=== PATIENT | female | born 1940 | race Caucasian/White ===

== ENCOUNTER 2016-10-23 19:19 | Observation (INO) | payer SELFPAY ==
[~2016-10-23] VITALS: Ht 162.6 cm; Wt 54.0 kg
[2016-10-23 19:21] VITALS: BP 241/105; PULSE 72; RESP 18; TEMP 97.8; O2SAT 97
[2016-10-23] MEDS ORDERED: SODIUM CHLORIDE 0.9% FLUSH 5 ML FLUSH IVF PRN (23:00)
[2016-10-23] MEDS ORDERED: methylPREDNISolone SOD SUCC 125 MG/2 ML VIAL IVP ONE (23:00)
--- NOTE | 2016-10-23 23:00 | PD ---
HPI Chief Complaint: Cold / Flu Symptoms Time Seen by Provider: 22:46 Travel History International Travel<30 days: No (came from [facility] over one month ago) Contact w/Intl Traveler<30days: [place] of Country Traveled to: [place] Traveled to known affect area: No History of Present Illness HPI The patient is a 76-year-old female who presents emergency department for cough and shortness of breath. The patient is [place] Islander-speaking, family translates at bedside per her report, according to the family. Patient recently traveled from [facility] one month ago. Approximately 2 weeks ago the patient developed shortness of breath, a dry most and nonproductive cough, and dysuria. The patient does have a history tobacco use, but denies any known history of congestive heart failure, pulmonary most in, DVT, or known COPD. The patient does have intermittent swelling the lower extremities, does take medications for blood pressure including lisinopril and losartan. The patient also takes omeprazole for GERD. The patient's cough is dry and nonproductive, she does have some anterior chest wall pain with coughing that is alleviated at rest. She denies any outright shortness of breath. The patient does not have a primary physician in the local area, is headed back to [facility], or her physician resides, and one month. Family states the patient has had no fever, chills, or sweats. [facility] Past Medical History Cardiovascular Problems: Yes (HTN) Social History Tobacco Use: Yes Allergies-Medications (Allergen,Severity, Reaction): Coded Allergies: No Known Allergies (Unverified , 10/23/16) Review of Systems Except as stated in HPI: all other systems reviewed are Neg General / Constitutional: No: Fever HENT: Positive: Congestion Cardiovascular: No: Chest Pain or Discomfort Respiratory: Positive: Cough, Shortness of Breath, Wheezing Gastrointestinal: No: Nausea, Vomiting, Abdominal Pain Musculoskeletal: Positive: Edema (intermittent) Physical Exam Narrative GENERAL: Awake, alert, pleasant 76-year-old female who appears her stated age and is in no acute respiratory distress. SKIN: Warm and dry. HEAD: Atraumatic. Normocephalic. EYES: Pupils equal and round. No scleral icterus. No injection or drainage. ENT: No injection or drainage.. NECK: Trachea midline. No JVD. CARDIOVASCULAR: Regular rate and rhythm. No murmur appreciated. Heart rate in the 70s. RESPIRATORY: No accessory muscle use. Prolonged expiratory phase with intermittent wheezes and a few scattered rhonchi. GASTROINTESTINAL: Abdomen soft, non-tender, nondistended. Minimal suprapubic discomfort.. MUSCULOSKELETAL: No obvious deformities. No clubbing. No cyanosis. No edema. NEUROLOGICAL: Awake and alert. No obvious cranial nerve deficits. Motor grossly within normal limits. Normal speech. PSYCHIATRIC: Appropriate mood and affect; insight and judgment normal. Data Data Last Documented VS Vital Signs Date Time Temp Pulse Resp B/P Pulse Ox O2 Delivery O2 Flow Rate FiO2 10/23/16 23:02 97 Room Air 10/23/16 22:51 68 20 10/23/16 19:21 97.8 241/105 Orders Complete Blood Count With Diff (10/23/16 22:53) Comprehensive Metabolic Panel (10/23/16 22:53) B-Type Natriuretic Peptide (10/23/16 22:53) D-Dimer (10/23/16 22:53) Act Partial Throm Time (Ptt) (10/23/16 22:53) Prothrombin Time / Inr (Pt) (10/23/16 22:53) Magnesium (Mg) (10/23/16 22:53) Ckmb (Isoenzyme) Profile (10/23/16 22:53) Troponin I (10/23/16 22:53) Influenzae A/B Antigen (10/23/16 22:53) Iv Access Insert/Monitor (10/23/16 22:53) Electrocardiogram (10/23/16 22:53) Ecg Monitoring (10/23/16 22:53) Oximetry (10/23/16 22:53) Oxygen Administration (10/23/16 22:53) Chest, Single Ap (10/23/16 22:53) Sodium Chloride 0.9% Flush (Ns Flush) (10/23/16 23:00) Methylprednisolone So Succ Inj (Solumedr (10/23/16 23:00) Albuterol-Ipratropium Neb (Duoneb Neb) (10/23/16 23:00) Ct Thorax/ Chest Wo Iv Contras (10/24/16 ) Admit Order (Ed Use Only) (10/24/16 01:28) Labs Laboratory Tests Test 10/23/16 23:42 White Blood Count 9.9 TH/MM3 Red Blood Count 4.41 MIL/MM3 Hemoglobin 11.8 GM/DL Hematocrit 35.3 % Mean Corpuscular Volume 80.2 FL Mean Corpuscular Hemoglobin 26.7 PG Mean Corpuscular Hemoglobin 33.3 % Concent Red Cell Distribution Width 16.2 % Platelet Count 222 TH/MM3 Mean Platelet Volume 9.7 FL Neutrophils (%) (Auto) 63.3 % Lymphocytes (%) (Auto) 22.8 % Monocytes (%) (Auto) 5.3 % Eosinophils (%) (Auto) 8.2 % Basophils (%) (Auto) 0.4 % Neutrophils # (Auto) 6.2 TH/MM3 Lymphocytes # (Auto) 2.2 TH/MM3 Monocytes # (Auto) 0.5 TH/MM3 Eosinophils # (Auto) 0.8 TH/MM3 Basophils # (Auto) 0.0 TH/MM3 CBC Comment DIFF FINAL Differential Comment Prothrombin Time 10.5 SEC Prothromb Time International 1.0 RATIO Ratio Activated Partial 28.5 SEC Thromboplast Time D-Dimer Quantitative (PE/DVT) 2.37 MG/L FEU Sodium Level 138 MEQ/L Potassium Level 4.0 MEQ/L Chloride Level 102 MEQ/L Carbon Dioxide Level 25.8 MEQ/L Anion Gap 10 MEQ/L Blood Urea Nitrogen 9 MG/DL Creatinine 1.15 MG/DL Estimat Glomerular Filtration 46 ML/MIN Rate Random Glucose 129 MG/DL Calcium Level 8.8 MG/DL Magnesium Level 2.0 MG/DL Total Bilirubin 0.3 MG/DL Aspartate Amino Transf 14 U/L (AST/SGOT) Alanine Aminotransferase 12 U/L (ALT/SGPT) Alkaline Phosphatase 137 U/L Total Creatine Kinase 66 U/L Troponin I LESS THAN 0.02 NG/ML B-Type Natriuretic Peptide 41 PG/ML Total Protein 8.2 GM/DL Albumin 3.1 GM/DL [facility] Medical Decision Making Medical Screen Exam Complete: Yes Emergency Medical Condition: Yes Medical Record Reviewed: Yes Interpretation(s) EKG reveals normal sinus rhythm with a rate of 63. Nonspecific T wave changes. Last Impressions Chest X-Ray 10/23/16 [id number] Signed Impressions: Service Date/Time: October 23:11 - CONCLUSION: Left upper lobe mass and underlying malignancy should be excluded, chest CT is recommended to further characterize. Kiley Puckett MD Laboratory Tests Test 10/23/16 23:42 White Blood Count 9.9 TH/MM3 Red Blood Count 4.41 MIL/MM3 Hemoglobin 11.8 GM/DL Hematocrit 35.3 % Mean Corpuscular Volume 80.2 FL Mean Corpuscular Hemoglobin 26.7 PG Mean Corpuscular Hemoglobin 33.3 % Concent Red Cell Distribution Width 16.2 % Platelet Count 222 TH/MM3 Mean Platelet Volume 9.7 FL Neutrophils (%) (Auto) 63.3 % Lymphocytes (%) (Auto) 22.8 % Monocytes (%) (Auto) 5.3 % Eosinophils (%) (Auto) 8.2 % Basophils (%) (Auto) 0.4 % Neutrophils # (Auto) 6.2 TH/MM3 Lymphocytes # (Auto) 2.2 TH/MM3 Monocytes # (Auto) 0.5 TH/MM3 Eosinophils # (Auto) 0.8 TH/MM3 Basophils # (Auto) 0.0 TH/MM3 CBC Comment DIFF FINAL Differential Comment Prothrombin Time 10.5 SEC Prothromb Time International 1.0 RATIO Ratio Activated Partial 28.5 SEC Thromboplast Time D-Dimer Quantitative (PE/DVT) 2.37 MG/L FEU Sodium Level 138 MEQ/L Potassium Level 4.0 MEQ/L Chloride Level 102 MEQ/L Carbon Dioxide Level 25.8 MEQ/L Anion Gap 10 MEQ/L Blood Urea Nitrogen 9 MG/DL Creatinine 1.15 MG/DL Estimat Glomerular Filtration 46 ML/MIN Rate Random Glucose 129 MG/DL Calcium Level 8.8 MG/DL Magnesium Level 2.0 MG/DL Total Bilirubin 0.3 MG/DL Aspartate Amino Transf 14 U/L (AST/SGOT) Alanine Aminotransferase 12 U/L (ALT/SGPT) Alkaline Phosphatase 137 U/L Total Creatine Kinase 66 U/L Troponin I LESS THAN 0.02 NG/ML B-Type Natriuretic Peptide 41 PG/ML Total Protein 8.2 GM/DL Albumin 3.1 GM/DL Date/Time Procedure Status Source Growth 10/23/16 23:44 Influenza Types A,B Antigen (DEEP) - Final Complete Nasal Aspirate NEGATIVE FOR FLU A AND B ANTIGEN.... Last Impressions Chest CT 10/24/16 0000 Signed Impressions: Service Date/Time: Monday, October 24, 2016 00:11 - CONCLUSION: Large left upper lobe mass almost certainly malignant. Kiley Puckett MD Chest X-Ray 10/23/16 1976 Signed Impressions: Service Date/Time: October 23:11 - CONCLUSION: Left upper lobe mass and underlying malignancy should be excluded, chest CT is recommended to further characterize. Kiley Puckett MD Differential Diagnosis Differential diagnosis includes bronchitis, pneumonia, congestive heart failure , pleural effusion, pulmonary embolism, acute coronary syndrome. Narrative Course IV was established, labs are drawn and sent, and the patient was placed on cardiac telemetry monitoring and continuous pulse oximetry monitoring. EKG was ordered and interpreted. Chest x-ray was ordered. The patient was administered DuoNeb's an influenza screen was sent to lab. D-dimer was sent to lab as patient recently traveled and has cough and shortness of breath. Chest x -ray reveals a spiculated lung mass, d-dimer is positive, however, most likely patient has lung cancer. CT of the thorax was ordered which reveals a mass in the left upper lobe, most likely malignancy. The patient does have a history of tobacco use. The patient is currently from out of country, [facility], does not have a primary physician. She will not be returning home for over one month. I had a discussion with the family at bedside regarding outpatient follow-up, unlikely to be done in a timely fashion as patient does not have insurance or access to healthcare here, versus admission for biopsy and initial oncology evaluation. The family discussed it for approximately 10 minutes and decided they prefer that the patient be admitted for initial biopsy and oncology evaluation. Therefore, the patient will be admitted to the hospital for new lung mass. Patient has no fever or hemoptysis, less likely to be tuberculosis, and has a appearance of the lung mass. Therefore, the on-call hospitalist was paged for 23 hour observation. Physician Communication Physician Communication The on-call medical service was paged for 23 hour observation. I discussed the patient with Dr. Duarte who agrees with 23 hour observation. Diagnosis Primary Impression: Lung mass Additional Impression: Dyspnea Qualified Code: R06.00 - Dyspnea, unspecified type Admitting Information Admitting Physician Requests: Observation Condition: Stable Tom Mason MD Oct 23, 2016 23:00
[2016-10-23 23:02] VITALS: O2SAT 97
[2016-10-23] MEDS: RESP: ALBUTEROL 2.5 MG/IPRATROPIUM 0.5 MG NEB (SCH) INH (23:09)
[2016-10-23 23:30] VITALS: BP 203/70; PULSE 88; RESP 18
--- NOTE | 2016-10-23 23:47 | RADRPT ---
EXAM DATE/TIME: 10/23/2016 23:11 [facility] COMPARISON: No previous studies available for comparison. INDICATIONS : Shortness of breath. MEDICAL HISTORY : Unobtainable. SURGICAL HISTORY : Unobtainable. ENCOUNTER: Initial ACUITY: 1 day PAIN SCORE: Non-responsive. LOCATION: Bilateral chest FINDINGS: Approximate 3.5 cm left upper lobe mass is present. Heart and mediastinum are unremarkable for techni que. CONCLUSION: Left upper lobe mass and underlying malignancy should be excluded, chest CT is recommended to further characterize. Kiley Puckett MD on October 23, 2016 at 23:45 Board Certified Radiologist. This report was verified electronically.
[2016-10-24] VITALS (13 sets, daily range): BP systolic 141–208; BP diastolic 56–79; PULSE 54–88; RESP 14–24; TEMP 97.5–98.1; O2SAT 94–99
[2016-10-24 00:01] LABS: EOSINOPHIL % 8.2 % (0.0-4.0); HEMATOCRIT 35.3 % (35.0-46.0); HEMO FLAGS DIFF FINAL; LYMPH % 22.8 % (9.0-44.0); MEAN CELL VOLUME 80.2 FL (80.0-100.0); MEAN CORPUSCULAR HEMOGLOBIN 26.7 PG (27.0-34.0); MEAN CORPUSCULAR HGB CONC 33.3 % (32.0-36.0); MONO % 5.3 % (0.0-8.0); NEUT % 63.3 % (16.0-70.0); PLATELET COUNT 222 TH/MM3 (150-450); RED BLOOD COUNT 4.41 MIL/MM3 (4.00-5.30); RED CELL DISTRIBUTION WIDTH 16.2 % (11.6-17.2); WHITE BLOOD COUNT 9.9 TH/MM3 (4.0-11.0)
[2016-10-24 00:02] LABS: AUTOMATED NEUTROPHIL # 6.2 TH/MM3 (1.8-7.7); BASOPHIL % 0.4 % (0.0-2.0); EOSINOPHIL # 0.8 TH/MM3 (0-0.4); LYMPHOCYTE # 2.2 TH/MM3 (1.0-4.8)
[2016-10-24 00:12] LABS: ALT (GPT) 12 U/L (10-53); ANION GAP 10 MEQ/L (5-15); AST (GOT) 14 U/L (15-37); BICARBONATE 25.8 MEQ/L (21.0-32.0); BLOOD UREA NITROGEN 9 MG/DL (7-18); CHLORIDE 102 MEQ/L (98-107); GLOMERULAR FILTRATION RATE 46 ML/MIN (>89); SODIUM (NA) 138 MEQ/L (136-145)
[2016-10-24 00:15] LABS: APTT (PATIENT) 28.5 SEC (24.3-30.1); PROTHROMBIN TIME - PATIENT 10.5 SEC (9.8-11.6)
[2016-10-24 00:16] LABS: ALKALINE PHOSPHATASE 137 U/L (45-117); TOTAL BILIRUBIN ADULT 0.3 MG/DL (0.2-1.0)
[2016-10-24 00:17] LABS: CREATINE KINASE 66 U/L (26-192)
--- NOTE | 2016-10-24 00:34 | RADRPT ---
EXAM DATE/TIME: 10/24/2016 00:11 [facility] COMPARISON: No previous studies available for comparison. INDICATIONS : Cough and congestion for two weeks, abnormal chest x-ray. RADIATION DOSE: 3.33 CTDIvol (mGy) MEDICAL HISTORY : Hypertension. SURGICAL HISTORY : None. ENCOUNTER: Initial ACUITY: 2 weeks PAIN SCALE: 0/10 LOCATION: chest TECHNIQUE: Volumetric scanning of the chest was performed. Using automated exposure control and adjustment of t he mA and/or kV according to patient size, radiation dose was kept as low as reasonably achievable to obtain optimal diagnostic quality images. FINDINGS: There is a large approximately 3.4 cm spiculated mass in the left apex posteriorly almost certai nly malignant. There are scattered tiny lymph nodes within the mediastinum most likely benign. Mancini ry artery calcifications are seen typically seen with CAD and need to be evaluated clinically. There are atherosclerotic calcifications of the aorta due to chronic atherosclerotic disease. CONCLUSION: Large left upper lobe mass almost certainly malignant. Kiley Puckett MD on October 24, 2016 at 0:30 Board Certified Radiologist. This report was verified electronically.
[2016-10-24] MEDS ORDERED: ENALAPRILAT 2.5 MG/2 ML VIAL IV PUSH ONE (01:30)
[2016-10-24] MEDS ORDERED: SODIUM CHLOR 0.9% 1000 ML INJ 1,000 ML IV SCH (06:10)
[2016-10-24] MEDS ORDERED: ONDANSETRON HCL 4 MG/2 ML VIAL IVP PRN (06:15)
[2016-10-24] MEDS ORDERED: SODIUM CHLORIDE 0.9% FLUSH 5 ML FLUSH FLUSH PRN (06:15)
[2016-10-24] MEDS ORDERED: NALOXONE HCL 0.4 MG/ML AMP IV PRN (06:15)
[2016-10-24] MEDS ORDERED: RESP: ALBUTEROL 2.5 MG/IPRATROPIUM 0.5 MG NEB (PRN) NEB (06:15)
[2016-10-24] MEDS ORDERED: cloNIDine HCL 0.1 MG TAB PO PRN (06:30)
[2016-10-24] MEDS: SODIUM CHLORIDE 0.9% FLUSH 5 ML FLUSH FLUSH SCH ×2 (08:09→23:15)
--- NOTE | 2016-10-24 08:33 | HHI.HP ---
[facility] Primary Care Physician No Primary Care Physician Admission Diagnosis lung mass, dyspnea, hypertension Diagnoses: (1) Lung mass Diagnosis: Principal (2) Dyspnea Diagnosis: Principal Chief Complaint: sob Travel History International Travel<30 Days: No (came from [facility] over one month ago) Contact w/Intl Traveler <30 Da: [place] of Country Traveled to: [place] Traveled to Known Affected Are: No History of Present Illness patient is a 76 y/o female who presented to ER with shortness of breath. she's persian speaking and the son helped with the translation. reported the patient had sob for few weeks. this was associated with occasional dry cough. she denies any fever, chills or recent weight loss. she's a chronic smoker and used to smoke a pack a day although she's trying to cut it down.she's also complaining of some dysuria . Review of Systems Constitutional: DENIES: Fever, Weight loss, Chills, Night Sweats Eyes: DENIES: Blurred vision, Diplopia, Vision loss, Double Vision Ears, nose, mouth, throat: DENIES: Tinnitus, Vertigo, Throat pain, Epistaxis Respiratory: COMPLAINS OF: Cough, Shortness of breath, DENIES: Apneas, Snoring , Wheezing, Hemoptysis, Sputum production Cardiovascular: DENIES: Chest pain, Palpitations, Syncope, Dyspnea on Exertion , PND, Lower Extremity Edema, Orthopnea, Claudication Gastrointestinal: DENIES: Abdominal pain, Black stools, Bloody stools, Constipation, Diarrhea, Nausea, Vomiting, Difficulty Swallowing, Anorexia Genitourinary: DENIES: Urinary frequency, Urgency, Hematuria, Dysuria Musculoskeletal: DENIES: Joint pain, Muscle aches, Stiffness, Joint Swelling Integumentary: DENIES: Rash Neurologic: DENIES: Abnormal gait, Headache, Localized weakness, Paresthesias, Seizures, Speech Problems, Tremor, Poor Balance Psychiatric: DENIES: Anxiety, Confusion, Mood changes, Depression, Hallucinations, Agitation, Suicidal Ideation, Homicidal Ideation, Delusions Past Family Social History Past Medical History hypertension Past Surgical History urinary bladder surgery. Reported Medications to be verified. Allergies: Coded Allergies: No Known Allergies (Unverified , 10/23/16) Active Ordered Medications Current Medications IV Flush (NS Flush) 2 ml UNSCH PRN IVF FLUSH AFTER USING IV ACCESS; Start 10/23 at 23:00; Stop 10/24/16 at 06:17; Status DC Methylprednisolone Sodium Succinate (SoluMEDROL INJ) 125 mg ONCE ONCE IVP Last administered on 10/23/16 23:00; Start 10/23/16 at 23:00; Stop 10/23/16 at 23:01; Status DC Albuterol/ Ipratropium (Duoneb Neb) 1 ampule Q15M INH Last administered on 10/23 23:09; Start 10/23/16 at 23:00; Stop 10/23/16 at 23:16; Status DC Enalaprilat 2.5 mg 2.5 mg ONCE ONCE IV PUSH Last administered on 10/24/16 01: 54; Start 10/24/16 at 01:30; Stop 10/24/16 at 01:31; Status DC Sodium Chloride (NS 1000 ml Inj) 1,000 ml @ 100 mls/hr Q10H IV Last administered on 10/24/16 06:51; Start 10/24/16 at 06:10; Stop 10/24/16 at 16:09 IV Flush (NS Flush) 2 ml UNSCH PRN FLUSH FLUSH AFTER USING IV ACCESS; Start at 06:15 IV Flush (NS Flush) 2 ml BID FLUSH ; Start 10/24/16 at 09:00 Ondansetron HCl (Zofran Inj) 4 mg Q6H PRN IVP NAUSEA OR VOMITING; Start at 06:15 Naloxone HCl (Narcan Inj) 0.4 mg UNSCH PRN IV SEE LABEL COMMENTS; Start at 06:15 Albuterol/ Ipratropium (Duoneb Neb) 1 ampule Q4HR NEB PRN NEB SOB/WHEEZING; Start 10/24/16 at 06:15 Clonidine (Catapres) 0.1 mg Q6H PRN PO SBP> OR = 180, DBP> OR = 100; Start at 06:30 Family History no history of cancer. Social History used to smoke a pack a day although she's trying to cut it down. doesn't drink. Physical Exam Vital Signs Vital Signs Date Time Temp Pulse Resp B/P Pulse Ox O2 Delivery O2 Flow Rate FiO2 10/24/16 08:07 98.0 65 24 173/74 95 Room Air 10/24/16 04:43 70 14 160/71 95 Room Air 10/24/16 02:44 70 18 167/75 98 10/24/16 01:00 88 18 208/78 99 10/23/16 23:30 88 18 203/70 10/23/16 23:02 97 Room Air 10/23/16 23:02 97 Room Air 10/23/16 22:51 68 20 97 Room Air 10/23/16 19:21 97.8 72 18 241/105 97 Room Air Physical Exam GENERAL: This is a well-nourished, well-developed patient, in no apparent distress. SKIN: No rashes, ecchymoses or lesions. Cool and dry. HEAD: Atraumatic. Normocephalic. No temporal or scalp tenderness. EYES: Pupils equal round and reactive. Extraocular motions intact. No scleral icterus. No injection or drainage. ENT: Nose without bleeding, purulent drainage or septal hematoma. Throat without erythema, tonsillar hypertrophy or exudate. Uvula midline. Airway patent. NECK: Trachea midline. No JVD or lymphadenopathy. Supple, nontender, no meningeal signs. CARDIOVASCULAR: Regular rate and rhythm without murmurs, gallops, or rubs. RESPIRATORY: Clear to auscultation. Breath sounds equal bilaterally. No wheezes , rales, or rhonchi. GASTROINTESTINAL: Abdomen soft, non-tender, nondistended. No hepato-splenomegaly , or palpable masses. No guarding. MUSCULOSKELETAL: Extremities without clubbing, cyanosis, or edema. No joint tenderness, effusion, or edema noted. No calf tenderness. Negative Homans sign bilaterally. NEUROLOGICAL: Awake and alert. Cranial nerves II through XII intact. Motor and sensory grossly within normal limits. Five out of 5 muscle strength in all muscle groups. Normal speech. Laboratory Laboratory Tests Test 10/23/16 23:42 White Blood Count 9.9 Red Blood Count 4.41 Hemoglobin 11.8 Hematocrit 35.3 Mean Corpuscular Volume 80.2 Mean Corpuscular Hemoglobin 26.7 Mean Corpuscular Hemoglobin 33.3 Concent Red Cell Distribution Width 16.2 Platelet Count 222 Mean Platelet Volume 9.7 Neutrophils (%) (Auto) 63.3 Lymphocytes (%) (Auto) 22.8 Monocytes (%) (Auto) 5.3 Eosinophils (%) (Auto) 8.2 Basophils (%) (Auto) 0.4 Neutrophils # (Auto) 6.2 Lymphocytes # (Auto) 2.2 Monocytes # (Auto) 0.5 Eosinophils # (Auto) 0.8 Basophils # (Auto) 0.0 CBC Comment DIFF FINAL Differential Comment Prothrombin Time 10.5 Prothromb Time International 1.0 Ratio Activated Partial 28.5 Thromboplast Time D-Dimer Quantitative (PE/DVT) 2.37 Sodium Level 138 Potassium Level 4.0 Chloride Level 102 Carbon Dioxide Level 25.8 Anion Gap 10 Blood Urea Nitrogen 9 Creatinine 1.15 Estimat Glomerular Filtration 46 Rate Random Glucose 129 Calcium Level 8.8 Magnesium Level 2.0 Total Bilirubin 0.3 Aspartate Amino Transf 14 (AST/SGOT) Alanine Aminotransferase 12 (ALT/SGPT) Alkaline Phosphatase 137 Total Creatine Kinase 66 Troponin I LESS THAN 0.02 B-Type Natriuretic Peptide 41 Total Protein 8.2 Albumin 3.1 Date/Time Procedure Status Source Growth 10/23/16 23:44 Influenza Types A,B Antigen (DEEP) - Final Complete Nasal Aspirate NEGATIVE FOR FLU A AND B ANTIGEN.... Result Diagram: 10/23/16 2342 10/23/16 2342 Imaging Last Impressions Chest CT 10/24/16 0000 Signed Impressions: Service Date/Time: Monday, October 24, 2016 00:11 - CONCLUSION: Large left upper lobe mass almost certainly malignant. Kiley Puckett MD Chest X-Ray 10/23/16 2257 Signed Impressions: Service Date/Time: October 23:11 - CONCLUSION: Left upper lobe mass and underlying malignancy should be excluded, chest CT is recommended to further characterize. Kiley Puckett MD EKG; sinus rhythm with no acute ST-T changes. Assessment and Plan Assessment and Plan A/P - lung mass ( left upper lobe) continue with oxygen as needed to keep O2 sat >90% oncology consulted. -dysuria- check UA -hypertension; clonidine as needed- will verify the home meds Discussed Condition With the patient, son and RN. Problem Qualifiers (1) Dyspnea: Qualified Code: R06.00 - Dyspnea, unspecified type Kimberlee Broussard MD Oct 24, 2016 08:33
[2016-10-24 09:05] LABS: HEMATOCRIT 33.6 % (35.0-46.0); MEAN CELL VOLUME 80.2 FL (80.0-100.0); MEAN CORPUSCULAR HEMOGLOBIN 26.7 PG (27.0-34.0); MEAN CORPUSCULAR HGB CONC 33.3 % (32.0-36.0); PLATELET COUNT 202 TH/MM3 (150-450); RED BLOOD COUNT 4.19 MIL/MM3 (4.00-5.30); REVIEW FLAG FINAL; WHITE BLOOD COUNT 8.6 TH/MM3 (4.0-11.0)
[2016-10-24 09:18] LABS: BICARBONATE 25.7 MEQ/L (21.0-32.0); POTASSIUM 4.4 MEQ/L (3.5-5.1)
[2016-10-24 11:27] LABS: BACTERIA, URINE MOD /hpf; BLOOD, URINE MOD (NEG); GLUCOSE,URINE NEG (NEG); KETONE, URINE NEG (NEG); NITRITE,URINE NEG (NEG); SQUAMOUS EPITHELIAL CELL URINE 12 /hpf (0-5); URINE COLOR YELLOW (YELLW/STRAW)
[2016-10-24 11:31] LABS: COMMENT (UR) CULTURE INDICATED; CULTURE IF INDICATED CULTURE INDICATED
[2016-10-24] MEDS: cefTRIAXone INJ 1,000 MG in SODIUM CHLORIDE 0.9% INJ 100 ML IV SCH (13:54)
[2016-10-24] MEDS ORDERED: LOSA50TA PO (15:35)
[2016-10-24] MEDS ORDERED: [UNRECOGNIZED DRUG - OTHER] PO (15:35)
[2016-10-24] MEDS ORDERED: OMEP20TA PO (15:35)
--- NOTE | 2016-10-24 22:44 | EKG ---
Date Performed: 10/23/2016 Time Performed: 23:19:02 PTAGE: 76 years EKG: Sinus rhythm MARKED LEFT AXIS DEVIATION SEPTAL MYOCARDIAL INFARCTION ABNORMAL ECG NO PREVIOUS TRACING DOCTOR: Luis A Corrales Interpretating Date/Time 10/24/2016 22:42:22
[2016-10-25] VITALS (8 sets, daily range): BP systolic 138–162; BP diastolic 67–80; PULSE 52–67; RESP 18–20; TEMP 96.5–98.4; O2SAT 94–100
[2016-10-25 04:59] LABS: BASOPHIL % 0.2 % (0.0-2.0); EOSINOPHIL # 0.2 TH/MM3 (0-0.4); EOSINOPHIL % 1.4 % (0.0-4.0); HEMATOCRIT 32.7 % (35.0-46.0); HEMO FLAGS DIFF FINAL; LYMPH % 20.5 % (9.0-44.0); LYMPHOCYTE # 2.5 TH/MM3 (1.0-4.8); MEAN CELL VOLUME 80.3 FL (80.0-100.0); MEAN CORPUSCULAR HEMOGLOBIN 26.3 PG (27.0-34.0); MEAN CORPUSCULAR HGB CONC 32.8 % (32.0-36.0); MONO % 5.3 % (0.0-8.0); NEUT % 72.6 % (16.0-70.0); PLATELET COUNT 218 TH/MM3 (150-450); RED BLOOD COUNT 4.08 MIL/MM3 (4.00-5.30); RED CELL DISTRIBUTION WIDTH 16.1 % (11.6-17.2); WHITE BLOOD COUNT 12.4 TH/MM3 (4.0-11.0)
[2016-10-25 05:25] LABS: BICARBONATE 26.7 MEQ/L (21.0-32.0); POTASSIUM 3.9 MEQ/L (3.5-5.1)
--- NOTE | 2016-10-25 06:54 | MB ---
cc: MARCUSMAXIMILIAN DATE OF CONSULTATION: 10/24/2016 DATE OF : 1940 REASON FOR CONSULTATION: Patient who presented with shortness of breath and was found to have a lung mass in the left upper lobe. CHIEF COMPLAINT Shortness of breath. HISTORY OF PRESENT ILLNESS: Miss Lemon is a 76 year old female with a past medical history of gastroesophageal reflux disease and hypertension who is visiting her family from [facility]. She arrived in the [facility] last month. She was brought to the emergency department with progressive shortness of breath and occasional cough. She was also experiencing cold chills. The patient does not speak British, however, her family is present in the room. Her son as well as two daughters were present. The patient is a chronic smoker and has more then 50 pack years of smoking history. She follows with a primary care physician in [facility] but it is unclear how consistent this follow up was. 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 There are scattered tiny lymph nodes within the mediastinum and they appear benign. I have been consulted to make further recommendations. REVIEW OF SYSTEMS A comprehensive 14-point review of systems was completed which is negative except as described in HPI. PAST MEDICAL HISTORY 1. Hypertension 2. Gastroesophageal reflux disease 3. history of bladder infections MEDICATIONS: Omeprazole. Losartan. PAST MEDICAL HISTORY: Urinary, bladder surgery. ALLERGIES She is does not have any drug allergies. SOCIAL HISTORY She is from [facility] and she is a visiting the in the . Her family lives here, including her two daughters and a son. She is a long time smoker, she does not drink alcohol. PHYSICAL EXAMINATION VITAL SIGNS: Blood pressure is 141/63, pulse is in the 50s, respiratory rate is 19, O2 sats are 99% on room air. IN GENERAL: Elderly female, chronically ill appearing in no apparent distress. HEAD, EYES, EARS, NOSE, AND THROAT: Pupils are equal, round, reactive to light. EOMI. No oral thrush. No oral lesions. NECK: The neck is supple. No JVD, no bruits. No lymphadenopathy. CHEST: The chest shows bilateral scattered rhonchi with occasional upper bilateral upper field wheezing. CARDIOVASCULAR SYSTEM: S1, S2, Regular rate and rhythm. ABDOMEN: Soft, nontender, nondistended, bowel sounds are present. EXTREMITIES: The extremities are without any edema, erythema or cyanosis. SKIN: Without any petechiae lesion or bruises. NEUROLOGIC: No focal deficits. PSYCHIATRIC: Mood and affect is appropriate. LABORATORY DATA WBC is 8.6, hemoglobin is 11.2, platelet count is 202. Serum chemistries show sodium 139, potassium 4.4, chloride 105, CO2 25.7, anion gap is 8, BUN is 12, creatinine is 1.2, alk phos is 137, CK 66. BNP is 41, total protein is 4.2. Coags show PT of 10.5, INR 1, PTT 28.5. IMAGING STUDIES Reviewed in the EMR ASSESSMENT/PLAN This is a 76-year-old female who is from [facility] who is visiting her family here in the [facility]. She presents to the emergency department with progressive shortness of breath and pleuritic chest pain on imaging, it appears that she has a mass in the left upper lobe. 1. 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 She has a long history of smoking. I had a long conversation with the patient and her family. Her son was present during this conversation they would like to pursue a biopsy to obtain a diagnosis. She plans on traveling back to [facility] sometime in November but the family says that it will depend on her overall health. We will proceed with getting CT-guided biopsy of this mass. We will consult IR for this procedure. We need to complete the staging on this patient. We need a CT of the abdomen. Her kidney functions are somewhat elevated today. We will wait until her kidney function normalizes so we could obtain a CT of the abdomen, pelvis with contrast. 2. Acute kidney failure. I would recommend IV hydration, abdominal ultrasound to rule out any hydronephrosis from possible metastatic disease. 3. History of tobacco abuse. 4. All questions asked by the patient's family were answered to her satisfaction. I will continue to follow this patient along. MD EDITH Cardenas/arcadio /5:38 PM /6:39 AM
--- NOTE | 2016-10-25 08:02 | HHI.PR ---
Subjective Remarks resting comfortably with no distress. sob has improved. son at the bedside. Objective Vitals Vital Signs Date Time Temp Pulse Resp B/P Pulse Ox O2 Delivery O2 Flow Rate FiO2 10/25/16 07:45 99 21 10/25/16 03:34 98.4 54 18 148/67 100 10/25/16 00:20 97.6 57 18 150/69 98 10/24/16 20:00 56 10/24/16 20:00 98.1 55 18 147/56 96 10/24/16 17:40 97.5 60 18 152/62 97 10/24/16 17:00 56 19 141/63 99 Room Air 10/24/16 16:00 54 19 145/67 99 Room Air 10/24/16 14:00 64 24 183/79 98 Room Air 10/24/16 13:00 62 22 182/79 98 Room Air 10/24/16 12:00 60 20 186/78 97 Room Air 10/24/16 11:30 94 10/24/16 11:00 62 19 156/68 96 Room Air 10/24/16 08:12 Nasal Cannula 2.0 10/24/16 08:07 98.0 65 24 173/74 95 Room Air Result Diagram: 10/25/16 0400 10/25/16 0400 Imaging Last Impressions Chest CT 10/24/16 0000 Signed Impressions: Service Date/Time: Monday, October 24, 2016 00:11 - CONCLUSION: Large left upper lobe mass almost certainly malignant. Kiley Puckett MD Chest X-Ray 10/23/16 2253 Signed Impressions: Service Date/Time: October 23:11 - CONCLUSION: Left upper lobe mass and underlying malignancy should be excluded, chest CT is recommended to further characterize. Kiley Puckett MD Objective Remarks GENERAL: This is a well-nourished, well-developed patient, in no apparent distress. CARDIOVASCULAR: Regular rate and regular rhythm without murmurs, gallops, or rubs. RESPIRATORY: Clear to auscultation. Breath sounds equal bilaterally. No wheezes , rales, or rhonchi. GASTROINTESTINAL: Abdomen soft, non-tender, nondistended. Normal, active bowel sounds MUSCULOSKELETAL: Extremities without clubbing, cyanosis, or edema. NEURO: Alert & Oriented x4 to person, place, time, situation. Moves all ext x4 Procedures none Medications and IVs Current Medications IV Flush (NS Flush) 2 ml UNSCH PRN IVF FLUSH AFTER USING IV ACCESS; Start 10/23 at 23:00; Stop 10/24/16 at 06:17; Status DC Methylprednisolone Sodium Succinate (SoluMEDROL INJ) 125 mg ONCE ONCE IVP Last administered on 10/23/16 23:00; Start 10/23/16 at 23:00; Stop 10/23/16 at 23:01; Status DC Albuterol/ Ipratropium (Duoneb Neb) 1 ampule Q15M INH Last administered on 10/23 23:09; Start 10/23/16 at 23:00; Stop 10/23/16 at 23:16; Status DC Enalaprilat 2.5 mg 2.5 mg ONCE ONCE IV PUSH Last administered on 10/24/16 01: 54; Start 10/24/16 at 01:30; Stop 10/24/16 at 01:31; Status DC Sodium Chloride (NS 1000 ml Inj) 1,000 ml @ 100 mls/hr Q10H IV Last administered on 10/24/16 06:51; Start 10/24/16 at 06:10; Stop 10/24/16 at 16:09 ; Status DC IV Flush (NS Flush) 2 ml UNSCH PRN FLUSH FLUSH AFTER USING IV ACCESS; Start at 06:15 IV Flush (NS Flush) 2 ml BID FLUSH Last administered on 10/24/16 23:15; Start 10/24/16 at 09:00 Ondansetron HCl (Zofran Inj) 4 mg Q6H PRN IVP NAUSEA OR VOMITING; Start at 06:15 Naloxone HCl (Narcan Inj) 0.4 mg UNSCH PRN IV SEE LABEL COMMENTS; Start at 06:15 Albuterol/ Ipratropium (Duoneb Neb) 1 ampule Q4HR NEB PRN NEB SOB/WHEEZING; Start 10/24/16 at 06:15 Clonidine 0.1 mg 0.1 mg Q6H PRN PO SBP> OR = 180, DBP> OR = 100 Last administered on 1/20/17at 13:53; Start 10/24/16 at 06:30 Ceftriaxone Sodium/Sodium Chloride (Rocephin Inj/NS Inj) 100 ml @ 200 mls/hr Q24H IV Last administered on 10/24/16t 13:54; Start 10/24/16 at 14:00 Influenza Virus Vaccine (Flu (Quadrivalent) Vaccine Inj) 0.5 ml ONCE ONCE IM ; Start 10/25/16 at 10:00; Stop 10/25/16 at 10:01 Pneumococcal Polyvalent Vaccine (Pneumovax-23 Inj) 25 mcg ONCE ONCE IM ; Start 10/25/16 at 10:00; Stop 10/25/16 at 10:01 A/P Assessment and Plan A/P - lung mass ( left upper lobe) continue with oxygen as needed to keep O2 sat >90% oncology consult appreciated; IR consulted for CT-guided biopsy of the lung mass- plan was d/w . -UTI; continue antibiotic- follow the UC -hypertension; clonidine as needed- resumed home meds Discharge Planning after lung mass biopsy. Kimberlee Broussard MD Oct 25, 2016 08:02
[2016-10-25] MEDS: LOSARTAN 50 MG TAB PO SCH ×2 (08:41→12:33)
[2016-10-25] MEDS: PANTOPRAZOLE SOD 20 MG DELAYED RELEASE TAB PO SCH (08:46)
[2016-10-25] MEDS: SODIUM CHLORIDE 0.9% FLUSH 5 ML FLUSH FLUSH SCH ×2 (08:46→21:00)
[2016-10-25] MEDS ORDERED: SODIUM CHLORID 0.9% 500 ML INJ 500 ML IV ONE (09:00)
[2016-10-25] MEDS ORDERED: [UNRECOGNIZED DRUG - OTHER] PO SCH (09:00)
[2016-10-25] MEDS ORDERED: DIATRIZOATE MEGLUM/DIATRIZOATE SOD 9 ML CUP PO ONE (09:30)
--- NOTE | 2016-10-25 09:42 | PD.ONC.PN ---
Subjective Subjective Remarks had questions about biopsy and possible biopsy says she has occasional cold chills plans for biopsy on Thursday Objective Data Date Time Temp Pulse Resp B/P Pulse Ox O2 Delivery O2 Flow Rate FiO2 10/25/16 08:53 96.5 52 18 138/68 94 10/25/16 07:45 99 21 10/25/16 03:34 98.4 54 18 148/67 100 10/25/16 00:20 97.6 57 18 150/69 98 10/24/16 20:00 56 10/24/16 20:00 98.1 55 18 147/56 96 10/24/16 17:40 97.5 60 18 152/62 97 10/24/16 17:00 56 19 141/63 99 Room Air 10/24/16 16:00 54 19 145/67 99 Room Air 10/24/16 14:00 64 24 183/79 98 Room Air 10/24/16 13:00 62 22 182/79 98 Room Air 10/24/16 12:00 60 20 186/78 97 Room Air 10/24/16 11:30 94 10/24/16 11:00 62 19 156/68 96 Room Air Result Diagram: 10/25/16 0400 10/25/16 0400 Laboratory Results Laboratory Tests Test 10/24/16 10/25/16 10:56 04:00 Urine Color YELLOW Urine Turbidity CLOUDY Urine pH 6.0 Urine Specific [place] 1.021 Urine Protein 100 mg/dL Urine Glucose (UA) NEG mg/dL Urine Ketones NEG mg/dL Urine Occult Blood MOD Urine Nitrite NEG Urine Bilirubin NEG Urine Urobilinogen LESS THAN 2.0 MG/DL Urine Leukocyte Esterase LARGE Urine RBC /hpf Urine WBC /hpf Urine Squamous Epithelial 12 /hpf Cells Urine Bacteria MOD /hpf Microscopic Urinalysis Comment CULTURE INDICATED White Blood Count 12.4 TH/MM3 Red Blood Count 4.08 MIL/MM3 Hemoglobin 10.7 GM/DL Hematocrit 32.7 % Mean Corpuscular Volume 80.3 FL Mean Corpuscular Hemoglobin 26.3 PG Mean Corpuscular Hemoglobin 32.8 % Concent Red Cell Distribution Width 16.1 % Platelet Count 218 TH/MM3 Mean Platelet Volume 9.4 FL Neutrophils (%) (Auto) 72.6 % Lymphocytes (%) (Auto) 20.5 % Monocytes (%) (Auto) 5.3 % Eosinophils (%) (Auto) 1.4 % Basophils (%) (Auto) 0.2 % Neutrophils # (Auto) 9.0 TH/MM3 Lymphocytes # (Auto) 2.5 TH/MM3 Monocytes # (Auto) 0.7 TH/MM3 Eosinophils # (Auto) 0.2 TH/MM3 Basophils # (Auto) 0.0 TH/MM3 CBC Comment DIFF FINAL Differential Comment Sodium Level 138 MEQ/L Potassium Level 3.9 MEQ/L Chloride Level 104 MEQ/L Carbon Dioxide Level 26.7 MEQ/L Anion Gap 7 MEQ/L Blood Urea Nitrogen 22 MG/DL Creatinine 1.19 MG/DL Estimat Glomerular Filtration 44 ML/MIN Rate Random Glucose 91 MG/DL Calcium Level 8.8 MG/DL Culture Results Microbiology Date/Time Procedure Status Source Growth 10/23/16 23:44 Influenza Types A,B Antigen (DEEP) - Final Complete Nasal Aspirate NEGATIVE FOR FLU A AND B ANTIGEN.... 10/24/16 10:56 Urine Culture Received Urine Clean Catch Pending Administered Medications Medications (Trade) Dose Ordered Sig/John Route PRN Reason Start Time Stop Time Status Last Admin Dose Admin IV Flush (NS Flush) 2 ml BID FLUSH 10/24/16 09:00 10/25/16 08:46 Clonidine 0.1 mg 0.1 mg Q6H PRN PO SBP> OR = 180, DBP> OR = 100 10/24/16 06:30 10/24/16 13:53 Ceftriaxone Sodium/Sodium Chloride (Rocephin Inj/NS Inj) 100 ml @ 200 mls/hr Q24H IV 10/24/16 14:00 10/24/16 13:54 Pantoprazole Sodium 20 mg 20 mg DAILY PO 10/25/16 09:00 10/25/16 08:46 Sodium Chloride (NS 500 ml Inj) 500 ml @ 50 mls/hr Q10H ONCE IV 10/25/16 09:00 10/25/16 18:59 10/25/16 08:46 Objective Remarks GENERAL: nad, elderly lady SKIN: Warm and dry. HEAD: Normocephalic. EYES: No scleral icterus. No injection or drainage. NECK: Supple, trachea midline. No JVD or lymphadenopathy. LYMPHATIC: No adenopathy. CARDIOVASCULAR: scattered rhonchi, b/l upper lobes wheezes RESPIRATORY: Breath sounds equal bilaterally. No accessory muscle use. GASTROINTESTINAL: Abdomen soft, non-tender, nondistended. EXTREMITIES: No cyanosis, or edema. Assessment/Plan Problem List: (1) Dyspnea Status: Acute (2) Lung mass Status: Acute Assessment 76-year-old female who is from [facility] who is visiting her family here in the [facility]. She presents to the emergency department with progressive shortness of breath and pleuritic chest pain on imaging, it appears that she has a mass in the left upper lobe. 1. 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 She has a long history of smoking. - plans for biopsy on Thursday - CT abdomen and pelvis with contrast when Cr better 2. Acute kidney failure. - IV fluid - Abdominal U/S ordered 3. History of tobacco abuse. Tobacco abuse counselling 4. Borderline microcytic anemia - Anemia studies - Stool heme-occult Discussed case with Dr. Broussard Answered family's questions Problem Qualifiers (1) Dyspnea: Qualified Code: R06.00 - Dyspnea, unspecified type Hadley John MD Oct 25, 2016 09:42
[2016-10-25] MEDS ORDERED: INFLUENZA VIRUS VACCINE (QUADRIVALENT) 0.5 ML SYR IM ONE (10:00)
[2016-10-25] MEDS ORDERED: PNEUMOCOCCAL POLYVALENT INJ 25 MCG/0.5 ML SYR IM ONE (10:00)
--- NOTE | 2016-10-25 12:23 | RADRPT ---
EXAM DATE/TIME: 10/25/2016 11:50 [facility] COMPARISON: CT THORAX W/O CONTRAST, October 24, 2016, 0:11. INDICATIONS : Increased BUN and Creatinine. MEDICAL HISTORY : Hypertension. Gastroesophageal reflux disease. Shortness of breath. Cough. Depression. Anxiety. Out of country travel from [facility]. Lung mass. SURGICAL HISTORY : Prolapse repair. ENCOUNTER: Initial ACUITY: 1 day PAIN SCORE: 0/10 LOCATION: Bilateral flank MEASUREMENTS: RIGHT KIDNEY: 6.9 x 4.5 x 3.6 cm LEFT KIDNEY: 10.8 x 4.6 x 4.6 cm FINDINGS: RIGHT KIDNEY: There is increased echotexture of the renal parenchyma. No hydronephrosis, stone, or mass is visualiz ed. LEFT KIDNEY: Renal cortex is normal in thickness and echotexture. No hydronephrosis, stone, or mass. BLADDER: Within normal limits given the degree of distension. CONCLUSION: Atrophic right kidney with abnormal increased echo texture suggesting chronic medical renal disease o f some type. There is no hydronephrosis. Given the asymmetry, renal vascular causes should be conside red. Sascha Aaron MD on October 25, 2016 at 12:19 Board Certified Radiologist. This report was verified electronically.
[2016-10-25] MEDS ORDERED: IOHEXOL 350 MG/ML 10 ML VIAL (for RAD DIAG) IV ONE (14:40)
[2016-10-25] MEDS: cefTRIAXone INJ 1,000 MG in SODIUM CHLORIDE 0.9% INJ 100 ML IV SCH (15:20)
--- NOTE | 2016-10-25 16:08 | RADRPT ---
EXAM DATE/TIME: 10/25/2016 14:22 [facility] COMPARISON: No previous studies available for comparison. INDICATIONS : Abdomen pain. IV CONTRAST: 96 cc Omnipaque 350 (iohexol) IV ORAL CONTRAST: Prescribed oral contrast ingested. RADIATION DOSE: 4.67 CTDIvol (mGy) MEDICAL HISTORY : Hypertension. Gastroesophageal reflux disease. SURGICAL HISTORY : None. ENCOUNTER: Initial ACUITY: 2 days PAIN SCALE: 5/10 LOCATION: Abdomen TECHNIQUE: Volumetric scanning of the abdomen and pelvis was performed. Using automated exposure control and ad justment of the mA and/or kV according to patient size, radiation dose was kept as low as reasonably achievable to obtain optimal diagnostic quality images. FINDINGS: There is a 1.6 cm hypodensity identified in the left lobe of the liver likely representing a cyst. T he spleen, pancreas and adrenal glands appear normal. There is global atrophy of the right kidney se en with cortical thinning. There is hypertrophy of the left kidney. There is atherosclerotic calcif ication and plaque seen throughout the arterial system. An aneurysm is not clearly seen. The patien t appears to be status post cholecystectomy. Common bile duct is dilated measuring 1.6 cm. This can reflect a reservoir phenomenon following cholecystectomy. There is a duodenal diverticulum seen at the second portion of the duodenum. There are scattered diverticula seen in the sigmoid region witho ut inflammatory change. Pelvic structures appear grossly intact. There is emphysematous change seen at the right lower lobe. The lung bases are otherwise grossly edd ar. There is a dextro curvature of the lumbar spine. There is some degenerative change seen at the lower lumbar spine. No focal bone lesions are seen. CONCLUSION: 1. Dilatation of the common bile duct. This could reflect a reservoir phenomenon following cholecys tectomy and can be correlated with signs of cholestasis. 2. 1.6 cm suspected cyst in the left lobe of the liver. 3. Global atrophy of the right kidney. There is compensatory hypertrophy of the left kidney. This could be secondary to atherosclerotic change. The patient has extensive atherosclerotic change seen throughout the visualized arterial structures. 4. Sigmoid colon diverticula. Sascha Mcwilliams MD on October 25, 2016 at 15:46 Board Certified Radiologist. This report was verified electronically.
[2016-10-26] VITALS (7 sets, daily range): BP systolic 59–155; BP diastolic 66–72; PULSE 59–72; RESP 18–20; TEMP 97–98.4; O2SAT 93–96
--- NOTE | 2016-10-26 07:36 | HHI.PR ---
Subjective Remarks in no distress. no new complaints. son at the bedside. Objective Vitals Vital Signs Date Time Temp Pulse Resp B/P Pulse Ox O2 Delivery O2 Flow Rate FiO2 10/26/16 05:48 97.8 59 20 140/69 96 10/26/16 01:04 97.4 72 20 147/68 93 10/25/16 20:00 66 10/25/16 19:29 97.8 67 20 162/74 96 10/25/16 15:52 96.9 60 18 148/72 95 10/25/16 12:15 96.8 53 18 162/80 97 10/25/16 08:53 96.5 52 18 138/68 94 10/25/16 07:45 99 21 Result Diagram: 10/25/16 0400 10/25/16 0400 Imaging Last Impressions Renal Ultrasound 10/25/16 0000 Signed Impressions: Service Date/Time: Tuesday, October 25, 2016 11:50 - CONCLUSION: Atrophic right kidney with abnormal increased echo texture suggesting chronic medical renal disease of some type. There is no hydronephrosis. Given the asymmetry, renal vascular causes should be considered. Sascha Aaron MD Abdomen/Pelvis CT 10/25/16 0000 Signed Impressions: Service Date/Time: Tuesday, October 25, 2016 14:22 - CONCLUSION: 1. Dilatation of the common bile duct. This could reflect a reservoir phenomenon following cholecystectomy and can be correlated with signs of cholestasis. 2. 1.6 cm suspected cyst in the left lobe of the liver. 3. Global atrophy of the right kidney. There is compensatory hypertrophy of the left kidney. This could be secondary to atherosclerotic change. The patient has extensive atherosclerotic change seen throughout the visualized arterial structures. 4. Sigmoid colon diverticula. Sascha Mcwilliams MD Chest CT 10/24/16 0000 Signed Impressions: Service Date/Time: Monday, October 24, 2016 00:11 - CONCLUSION: Large left upper lobe mass almost certainly malignant. Kiley Puckett MD Chest X-Ray 10/23/16 [id number] Signed Impressions: Service Date/Time: October 23:11 - CONCLUSION: Left upper lobe mass and underlying malignancy should be excluded, chest CT is recommended to further characterize. Kiley Puckett MD Objective Remarks GENERAL: This is a well-nourished, well-developed patient, in no apparent distress. CARDIOVASCULAR: Regular rate and regular rhythm without murmurs, gallops, or rubs. RESPIRATORY: Clear to auscultation. Breath sounds equal bilaterally. No wheezes , rales, or rhonchi. GASTROINTESTINAL: Abdomen soft, non-tender, nondistended. Normal, active bowel sounds MUSCULOSKELETAL: Extremities without clubbing, cyanosis, or edema. NEURO: Alert & Oriented x4 to person, place, time, situation. Moves all ext x4 Procedures none Medications and IVs Current Medications IV Flush (NS Flush) 2 ml UNSCH PRN IVF FLUSH AFTER USING IV ACCESS; Start 10/23 at 23:00; Stop 10/24/16 at 06:17; Status DC Methylprednisolone Sodium Succinate (SoluMEDROL INJ) 125 mg ONCE ONCE IVP Last administered on 10/23/16 23:00; Start 10/23/16 at 23:00; Stop 10/23/16 at 23:01; Status DC Albuterol/ Ipratropium (Duoneb Neb) 1 ampule Q15M INH Last administered on 10/23 23:09; Start 10/23/16 at 23:00; Stop 10/23/16 at 23:16; Status DC Enalaprilat 2.5 mg 2.5 mg ONCE ONCE IV PUSH Last administered on 10/24/16 01: 54; Start 10/24/16 at 01:30; Stop 10/24/16 at 01:31; Status DC Sodium Chloride (NS 1000 ml Inj) 1,000 ml @ 100 mls/hr Q10H IV Last administered on 10/24/16 06:51; Start 10/24/16 at 06:10; Stop 10/24/16 at 16:09 ; Status DC IV Flush (NS Flush) 2 ml UNSCH PRN FLUSH FLUSH AFTER USING IV ACCESS; Start at 06:15 IV Flush (NS Flush) 2 ml BID FLUSH Last administered on 10/25/16 08:46; Start 10/24/16 at 09:00 Ondansetron HCl (Zofran Inj) 4 mg Q6H PRN IVP NAUSEA OR VOMITING; Start at 06:15 Naloxone HCl (Narcan Inj) 0.4 mg UNSCH PRN IV SEE LABEL COMMENTS; Start at 06:15 Albuterol/ Ipratropium (Duoneb Neb) 1 ampule Q4HR NEB PRN NEB SOB/WHEEZING Last administered on 10/26/16 00:13; Start 10/24/16 at 06:15 Clonidine 0.1 mg 0.1 mg Q6H PRN PO SBP> OR = 180, DBP> OR = 100 Last administered on 10/24/16 13:53; Start 10/24/16 at 06:30 Ceftriaxone Sodium/Sodium Chloride (Rocephin Inj/NS Inj) 100 ml @ 200 mls/hr Q24H IV Last administered on 10/25/16 15:20; Start 10/24/16 at 14:00 Influenza Virus Vaccine (Flu (Quadrivalent) Vaccine Inj) 0.5 ml ONCE ONCE IM ; Start 10/25/16 at 10:00; Stop 10/25/16 at 10:01; Status DC Pneumococcal Polyvalent Vaccine (Pneumovax-23 Inj) 25 mcg ONCE ONCE IM ; Start 10/25/16 at 10:00; Stop 10/25/16 at 10:01; Status DC Losartan Potassium (Cozaar) 50 mg DAILY PO Last administered on 10/25/16 12:33 ; Start 10/25/16 at 09:00 Pantoprazole Sodium (Protonix) 20 mg DAILY PO Last administered on 10/25/16 08 :46; Start 10/25/16 at 09:00 Non-Formulary Medication 20 mg 20 mg DAILY PO ; Start 10/25/16 at 09:00; Stop at 09:44; Status DC Sodium Chloride (NS 500 ml Inj) 500 ml @ 50 mls/hr Q10H ONCE IV Last administered on 10/25/16 08:46; Start 10/25/16 at 09:00; Stop 10/25/16 at 18:59 ; Status DC Diatrizoate Meglum/ Diatrizoate Sod ( Gastroview Liq) 18 ml ONCE ONCE PO Last administered on 10/25/16 11:06; Start 10/25/16 at 09:30; Stop 10/25/16 at 09:31; Status DC Amlodipine Besylate (Norvasc) 10 mg DAILY PO Last administered on 1/21/17at 12: 33; Start 10/25/16 at 10:00 Iohexol (Omnipaque 350 Inj) 96 ml STK-MED ONCE IV Last administered on 14:40; Start 10/25/16 at 14:40; Stop 10/25/16 at 14:41; Status DC A/P Assessment and Plan A/P - lung mass ( left upper lobe) continue with oxygen as needed to keep O2 sat >90% oncology consult appreciated; IR consulted for CT-guided biopsy of the lung mass- plan was previously d/w . -UTI; continue antibiotic- follow the UC -hypertension; clonidine as needed- resumed home meds -DVT prophylaxis with SCD's Discharge Planning after lung mass biopsy. Kimberlee Broussard MD Oct 26, 2016 07:36
[2016-10-26 08:40] LABS: RETIC % 1.7 % (0.4-3.0); REVIEW FLAG FINAL
[2016-10-26 09:23] LABS: ANION GAP 9 MEQ/L (5-15); BICARBONATE 28.1 MEQ/L (21.0-32.0); BLOOD UREA NITROGEN 21 MG/DL (7-18); CHLORIDE 103 MEQ/L (98-107); GLOMERULAR FILTRATION RATE 44 ML/MIN (>89); LDH SERUM 146 U/L (84-246); POTASSIUM 3.8 MEQ/L (3.5-5.1); SODIUM (NA) 140 MEQ/L (136-145); TRANSFERRIN IRON PROFILE 185 MG/DL (200-360)
--- NOTE | 2016-10-26 09:26 | PD.ONC.PN ---
Subjective Subjective Remarks resting comfortably feels week anxious about biopsy. family has questions d/w rn Objective Data Date Time Temp Pulse Resp B/P Pulse Ox O2 Delivery O2 Flow Rate FiO2 10/26/16 05:48 97.8 59 20 140/69 96 10/26/16 01:04 97.4 72 20 147/68 93 10/25/16 20:00 66 10/25/16 19:29 97.8 67 20 162/74 96 10/25/16 15:52 96.9 60 18 148/72 95 10/25/16 12:15 96.8 53 18 162/80 97 Result Diagram: 10/25/16 0400 10/26/16 0809 Laboratory Results Laboratory Tests Test 10/26/16 10/26/16 08:09 08:19 Sodium Level 140 MEQ/L Potassium Level 3.8 MEQ/L Chloride Level 103 MEQ/L Carbon Dioxide Level 28.1 MEQ/L Anion Gap 9 MEQ/L Blood Urea Nitrogen 21 MG/DL Creatinine 1.18 MG/DL Estimat Glomerular Filtration 44 ML/MIN Rate Random Glucose 78 MG/DL Calcium Level 8.2 MG/DL Iron Level 37 MCG/DL Total Iron Binding Capacity 259 MCG/DL Percent Iron Saturation 14.3 % Transferrin 185 MG/DL Lactate Dehydrogenase 146 U/L Carcinoembryonic Antigen 2.5 NG/ML Vitamin B12 Level 350 PG/ML Reticulocyte Count 1.7 % Absolute Reticulocyte Count 67.1 MIL/L Culture Results Microbiology Date/Time Procedure Status Source Growth 10/23/16 23:44 Influenza Types A,B Antigen (DEEP) - Final Complete Nasal Aspirate NEGATIVE FOR FLU A AND B ANTIGEN.... 10/24/16 10:56 Urine Culture - Preliminary Resulted Urine Clean Catch Gram Negative Noel Administered Medications Medications (Trade) Dose Ordered Sig/John Route PRN Reason Start Time Stop Time Status Last Admin Dose Admin IV Flush (NS Flush) 2 ml BID FLUSH 10/24/16 09:00 10/25/16 08:46 Clonidine 0.1 mg 0.1 mg Q6H PRN PO SBP> OR = 180, DBP> OR = 100 10/24/16 06:30 10/24/16 13:53 Ceftriaxone Sodium/Sodium Chloride (Rocephin Inj/NS Inj) 100 ml @ 200 mls/hr Q24H IV 10/24/16 14:00 10/25/16 15:20 Losartan Potassium (Cozaar) 50 mg DAILY PO 10/25/16 09:00 10/25/16 12:33 Pantoprazole Sodium (Protonix) 20 mg DAILY PO 10/25/16 09:00 10/25/16 08:46 Amlodipine Besylate (Norvasc) 10 mg DAILY PO 10/25/16 10:00 10/25/16 12:33 Objective Remarks GENERAL: nad SKIN: Warm and dry. HEAD: Normocephalic. LYMPHATIC: No adenopathy. CARDIOVASCULAR: Regular rate and rhythm without murmurs. RESPIRATORY: Breath sounds equal bilaterally. No accessory muscle use. GASTROINTESTINAL: Abdomen soft, non-tender, nondistended. EXTREMITIES: No cyanosis, or edema. Assessment/Plan Problem List: (1) Dyspnea Status: Acute (2) Lung mass Status: Acute Assessment 76-year-old female who is from [facility] who is visiting her family here in the [facility]. She presents to the emergency department with progressive shortness of breath and pleuritic chest pain on imaging, it appears that she has a mass in the left upper lobe. 1. 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 She has a long history of smoking. - plans for biopsy on Thursday - CT abdomen and pelvis with contrast does not show any metastatic disease. 2. Acute kidney failure. - IV fluid 3. History of tobacco abuse. Tobacco abuse counselling 4. Borderline microcytic anemia -iron deficient. will start IV iron - Stool heme-occult pending Problem Qualifiers (1) Dyspnea: Qualified Code: R06.00 - Dyspnea, unspecified type Hadley John MD Oct 26, 2016 09:26 (1) Dyspnea: Qualified Code: R06.00 - Dyspnea, unspecified type Hadley John MD Oct 26, 2016 09:26
[2016-10-26] MEDS: SODIUM CHLORIDE 0.9% FLUSH 5 ML FLUSH FLUSH SCH ×2 (09:31→20:57)
[2016-10-26] MEDS: PANTOPRAZOLE SOD 20 MG DELAYED RELEASE TAB PO SCH (09:31)
[2016-10-26] MEDS: cefTRIAXone INJ 1,000 MG in SODIUM CHLORIDE 0.9% INJ 100 ML IV SCH (12:46)
[2016-10-26] MEDS ORDERED: diphenhydrAMINE HCL 25 MG CAP PO ONE (19:45)
[2016-10-26] MEDS ORDERED: ACETAMINOPHEN 325 MG TAB PO ONE (19:45)
[2016-10-26] MEDS: IRON SUCROSE INJ 200 MG in SODIUM CHLORIDE 0.9% INJ 100 ML IV SCH (20:57)
[2016-10-27] VITALS (13 sets, daily range): BP systolic 119–164; BP diastolic 63–80; PULSE 52–87; RESP 16–20; TEMP 95.8–98.3; O2SAT 90–97
--- NOTE | 2016-10-27 07:25 | HHI.PR ---
Subjective Remarks resting comfortably with no distress. no sob. awaiting lung biopsy. d/w the RN. Objective Vitals Vital Signs Date Time Temp Pulse Resp B/P Pulse Ox O2 Delivery O2 Flow Rate FiO2 10/27/16 05:01 96.6 56 18 159/77 97 10/27/16 02:16 98.3 87 20 155/80 96 10/26/16 20:19 65 10/26/16 19:40 98.4 68 20 155/72 96 10/26/16 16:02 60 10/26/16 15:57 97.0 62 18 59/ 95 10/26/16 11:34 97.7 63 18 139/66 94 Result Diagram: 10/25/16 0400 10/26/16 0809 Imaging Last Impressions Renal Ultrasound 10/25/16 0000 Signed Impressions: Service Date/Time: Tuesday, October 25, 2016 11:50 - CONCLUSION: Atrophic right kidney with abnormal increased echo texture suggesting chronic medical renal disease of some type. There is no hydronephrosis. Given the asymmetry, renal vascular causes should be considered. Sascha Aaron MD Abdomen/Pelvis CT 10/25/16 0000 Signed Impressions: Service Date/Time: Tuesday, October 25, 2016 14:22 - CONCLUSION: 1. Dilatation of the common bile duct. This could reflect a reservoir phenomenon following cholecystectomy and can be correlated with signs of cholestasis. 2. 1.6 cm suspected cyst in the left lobe of the liver. 3. Global atrophy of the right kidney. There is compensatory hypertrophy of the left kidney. This could be secondary to atherosclerotic change. The patient has extensive atherosclerotic change seen throughout the visualized arterial structures. 4. Sigmoid colon diverticula. Sascha Mcwilliams MD Chest CT 10/24/16 0000 Signed Impressions: Service Date/Time: Monday, October 24, 2016 00:11 - CONCLUSION: Large left upper lobe mass almost certainly malignant. Kiley Puckett MD Chest X-Ray 10/23/16 7030 Signed Impressions: Service Date/Time: October 23:11 - CONCLUSION: Left upper lobe mass and underlying malignancy should be excluded, chest CT is recommended to further characterize. Kiley Puckett MD Objective Remarks GENERAL: This is a well-nourished, well-developed patient, in no apparent distress. CARDIOVASCULAR: Regular rate and regular rhythm without murmurs, gallops, or rubs. RESPIRATORY: Clear to auscultation. Breath sounds equal bilaterally. No wheezes , rales, or rhonchi. GASTROINTESTINAL: Abdomen soft, non-tender, nondistended. Normal, active bowel sounds MUSCULOSKELETAL: Extremities without clubbing, cyanosis, or edema. NEURO: Alert & Oriented x4 to person, place, time, situation. Moves all ext x4 Procedures none Medications and IVs Current Medications IV Flush (NS Flush) 2 ml UNSCH PRN IVF FLUSH AFTER USING IV ACCESS; Start 10/23 at 23:00; Stop 10/24/16 at 06:17; Status DC Methylprednisolone Sodium Succinate (SoluMEDROL INJ) 125 mg ONCE ONCE IVP Last administered on 10/23/16 23:00; Start 10/23/16 at 23:00; Stop 10/23/16 at 23:01; Status DC Albuterol/ Ipratropium (Duoneb Neb) 1 ampule Q15M INH Last administered on 10/23 23:09; Start 10/23/16 at 23:00; Stop 10/23/16 at 23:16; Status DC Enalaprilat 2.5 mg 2.5 mg ONCE ONCE IV PUSH Last administered on 10/24/16 01: 54; Start 10/24/16 at 01:30; Stop 10/24/16 at 01:31; Status DC Sodium Chloride (NS 1000 ml Inj) 1,000 ml @ 100 mls/hr Q10H IV Last administered on 10/24/16 06:51; Start 10/24/16 at 06:10; Stop 10/24/16 at 16:09 ; Status DC IV Flush (NS Flush) 2 ml UNSCH PRN FLUSH FLUSH AFTER USING IV ACCESS; Start at 06:15 IV Flush (NS Flush) 2 ml BID FLUSH Last administered on 10/26/16 20:57; Start 10/24/16 at 09:00 Ondansetron HCl (Zofran Inj) 4 mg Q6H PRN IVP NAUSEA OR VOMITING; Start at 06:15 Naloxone HCl (Narcan Inj) 0.4 mg UNSCH PRN IV SEE LABEL COMMENTS; Start at 06:15 Albuterol/ Ipratropium (Duoneb Neb) 1 ampule Q4HR NEB PRN NEB SOB/WHEEZING Last administered on 10/26/16 00:13; Start 10/24/16 at 06:15 Clonidine 0.1 mg 0.1 mg Q6H PRN PO SBP> OR = 180, DBP> OR = 100 Last administered on 10/24/16 13:53; Start 10/24/16 at 06:30 Ceftriaxone Sodium/Sodium Chloride (Rocephin Inj/NS Inj) 100 ml @ 200 mls/hr Q24H IV Last administered on 10/26/16 12:46; Start 10/24/16 at 14:00 Influenza Virus Vaccine (Flu (Quadrivalent) Vaccine Inj) 0.5 ml ONCE ONCE IM ; Start 10/25/16 at 10:00; Stop 10/25/16 at 10:01; Status DC Pneumococcal Polyvalent Vaccine (Pneumovax-23 Inj) 25 mcg ONCE ONCE IM ; Start 10/25/16 at 10:00; Stop 10/25/16 at 10:01; Status DC Losartan Potassium (Cozaar) 50 mg DAILY PO Last administered on 10/25/16 12:33 ; Start 10/25/16 at 09:00 Pantoprazole Sodium (Protonix) 20 mg DAILY PO Last administered on 10/26/16 09 :31; Start 10/25/16 at 09:00 Non-Formulary Medication 20 mg 20 mg DAILY PO ; Start 10/25/16 at 09:00; Stop at 09:44; Status DC Sodium Chloride (NS 500 ml Inj) 500 ml @ 50 mls/hr Q10H ONCE IV Last administered on 10/25/16 08:46; Start 10/25/16 at 09:00; Stop 10/25/16 at 18:59 ; Status DC Diatrizoate Meglum/ Diatrizoate Sod ( Gastroview Liq) 18 ml ONCE ONCE PO Last administered on 10/25/16 11:06; Start 10/25/16 at 09:30; Stop 10/25/16 at 09:31; Status DC Amlodipine Besylate (Norvasc) 10 mg DAILY PO Last administered on 10/26/16 09: 31; Start 10/25/16 at 10:00 Iohexol 96 ml 96 ml STK-MED ONCE IV Last administered on 10/25/16 14:40; Start 10/25/16 at 14:40; Stop 10/25/16 at 14:41; Status DC Iron Sucrose/ Sodium Chloride (Venofer Inj/NS Inj) 110 ml @ 110 mls/hr DAILY IV Last administered on 10/26/16 20:57; Start 10/26/16 at 18:30; Stop at 09:59 Acetaminophen (Tylenol) 650 mg ONCE ONCE PO Last administered on 10/26/16 20: 26; Start 10/26/16 at 19:45; Stop 10/26/16 at 19:47; Status DC Diphenhydramine HCl (Benadryl) 25 mg ONCE ONCE PO Last administered on 20:26; Start 10/26/16 at 19:45; Stop 10/26/16 at 19:47; Status DC A/P Assessment and Plan A/P - lung mass ( left upper lobe) continue with oxygen as needed to keep O2 sat >90% oncology consult appreciated; IR consulted for CT-guided biopsy of the lung mass today- plan was previously d/w . -anemia; started on IV Iron -UTI; switch to po antibiotic-UC with e-coli and staph. coag-positive -hypertension; clonidine as needed- resumed home meds -DVT prophylaxis with SCD's Discharge Planning dc home this evening or in am- after the lung biopsy. Kimberlee Broussard MD Oct 27, 2016 07:25
[2016-10-27] MEDS ORDERED: diphenhydrAMINE HCL 25 MG CAP PO ONE (07:30)
[2016-10-27] MEDS ORDERED: ACETAMINOPHEN 325 MG TAB PO ONE (07:30)
[2016-10-27] MEDS: CIPROFLOXACIN 250 MG TAB PO SCH ×2 (09:00→21:02)
[2016-10-27] MEDS ORDERED: LIDOCAINE 1%/EPINEPHrine 1:100,000 SOLN 20 ML VIAL ONE (10:57)
--- NOTE | 2016-10-27 11:31 | PD.ONC.PN ---
Subjective Subjective Remarks CT guided biopsy today. no new issues today tolerated iron infusion Objective Data Date Time Temp Pulse Resp B/P Pulse Ox O2 Delivery O2 Flow Rate FiO2 10/27/16 07:48 95.8 58 16 164/77 97 10/27/16 05:01 96.6 56 18 159/77 97 10/27/16 02:16 98.3 87 20 155/80 96 10/26/16 20:19 65 10/26/16 19:40 98.4 68 20 155/72 96 10/26/16 16:02 60 10/26/16 15:57 97.0 62 18 59/ 95 10/26/16 11:34 97.7 63 18 139/66 94 Result Diagram: 10/25/16 0400 10/26/16 0809 Administered Medications Medications (Trade) Dose Ordered Sig/John Route PRN Reason Start Time Stop Time Status Last Admin Dose Admin IV Flush (NS Flush) 2 ml BID FLUSH 10/24/16 09:00 10/26/16 20:57 Clonidine (Catapres) 0.1 mg Q6H PRN PO SBP> OR = 180, DBP> OR = 100 10/24/16 06:30 10/24/16 13:53 Losartan Potassium (Cozaar) 50 mg DAILY PO 10/25/16 09:00 10/25/16 12:33 Pantoprazole Sodium (Protonix) 20 mg DAILY PO 10/25/16 09:00 10/26/16 09:31 Amlodipine Besylate 10 mg 10 mg DAILY PO 10/25/16 10:00 10/26/16 09:31 Iron Sucrose/ Sodium Chloride (Venofer Inj/NS Inj) 110 ml @ 110 mls/hr DAILY IV 10/26/16 18:30 10/28/16 09:59 10/26/16 20:57 Objective Remarks GENERAL: nad SKIN: Warm and dry. NECK: Supple, trachea midline. No JVD or lymphadenopathy. LYMPHATIC: No adenopathy. CARDIOVASCULAR: Regular rate and rhythm without murmurs. RESPIRATORY: Breath sounds equal bilaterally. No accessory muscle use. GASTROINTESTINAL: Abdomen soft, non-tender, nondistended. EXTREMITIES: No cyanosis, or edema. Assessment/Plan Problem List: (1) Dyspnea Status: Acute (2) Lung mass Status: Acute Assessment 76-year-old female who is from [facility] who is visiting her family here in the [place]. She presents to the emergency department with progressive shortness of breath and pleuritic chest pain on imaging, it appears that she has a mass in the left upper lobe. 1. 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 She has a long history of smoking. - biopsy today - CT abdomen and pelvis with contrast does not show any metastatic disease. 2. Acute kidney failure/ base line CKD/Cr levels 3. History of tobacco abuse. Tobacco abuse counselling 4. Borderline microcytic anemia -iron deficient. will start IV iron - Stool heme-occult pending F/U on biopsy. Can go home and f/u in clinic in 1-2 weeks if stable after biopsy. Problem Qualifiers (1) Dyspnea: Qualified Code: R06.00 - Dyspnea, unspecified type Hadley John MD Oct 27, 2016 11:31
[2016-10-27] MEDS ORDERED: fentaNYL CITRATE 250 MCG/5 ML AMP ONE (11:36)
[2016-10-27] MEDS ORDERED: MIDAZOLAM HCL 5 MG/5 ML VIAL ONE (11:36)
[2016-10-27] MEDS ORDERED: oxyCODONE/ACETAMINOPHEN 5 MG/325 MG TAB PO PRN (12:00)
--- NOTE | 2016-10-27 15:08 | RADRPT ---
EXAM DATE/TIME: 10/27/2016 13:59 [facility] COMPARISON: CT THORAX W/O CONTRAST, October 24, 2016, 0:11. CHEST SINGLE AP, October 23, 2016, 23:11. INDICATIONS : Status post left lung biopsy. MEDICAL HISTORY : None. SURGICAL HISTORY : None. ENCOUNTER: Subsequent ACUITY: 1 day PAIN SCORE: Non-responsive. LOCATION: chest FINDINGS: The examination demonstrates a 3.1 cm mass in the medial aspect of the left upper lobe. No pneumothor ax is seen. The remainder of the parenchyma is clear. The heart is normal in size. The bony structure s are grossly intact. CONCLUSION: 1. No pneumothorax identified following CT guided biopsy. Kushal Lawrence MD on October 27, 2016 at 15:05 Board Certified Radiologist. This report was verified electronically.
--- NOTE | 2016-10-27 15:23 | RADRPT ---
EXAM DATE/TIME: 10/27/2016 11:42 [facility] COMPARISON: No previous studies available for comparison. INDICATIONS : Left lung mass. SEDATION TIME: 20 minutes BIOPSY SITE: Left lung MEDICATION(S): 1.) 2 mg midazolam (Versed) IV 2.) 100 mcg fentanyl (Sublimaze) IV DEVICE(S): 1.) 18 gauge Macario blunt needle 2.) 20 gauge Temno core biopsy needle MEDICAL HISTORY : Hypertension. Gastroesophageal reflux disease. SURGICAL HISTORY : None. ENCOUNTER: Initial ACUITY: 1 day PAIN SCORE: 0/10 LOCATION: Left chest A total of two core specimen(s) were obtained and sent to the laboratory for pathologic evaluation. PROCEDURE: 1. CT guided lung biopsy. 2. Conscious sedation with continuous EKG and oximetry monitoring. 3. EKG and oximetry remained stable throughout the procedure. Prior to the procedure informed consent was obtained. Any appropriate prior imaging studies were rev iewed. The site was prepped in a sterile fashion. Full sterile technique was used, including cap, mask, quiana rile gloves and gown and a large sterile sheet. Hand hygiene and 2% chlorhexidine and/or betadine/al cohol prep was utilized per protocol for cutaneous antisepsis. The skin and subcutaneous tissues wer e infiltrated with local anesthetic solution. Under CT guidance an 18 gauge Manoj was placed to the mass 2 cores obtained. Slides were submitted . Follow-up CT scan reveals no pneumothorax. Conscious sedation was performed with the prescribed dosages and duration as above. The patient june ated the procedure well and there were no complications. EKG and oximetry remained stable throughout the procedure. The patient was sent to Radiology Outpatient Unit in stable condition. CONCLUSION: Uncomplicated CT guided biopsy. Preliminary interpretation is an adequate specimen for diagnosis. Casimiro Lawrence MD FACR on October 27, 2016 at 15:21 Board Certified Radiologist. This report was verified electronically.
[2016-10-27] MEDS: LOSARTAN 50 MG TAB PO SCH (16:16)
[2016-10-27] MEDS: PANTOPRAZOLE SOD 20 MG DELAYED RELEASE TAB PO SCH (16:16)
[2016-10-27] MEDS: SODIUM CHLORIDE 0.9% FLUSH 5 ML FLUSH FLUSH SCH ×2 (16:16→21:02)
[2016-10-27] MEDS: IRON SUCROSE INJ 200 MG in SODIUM CHLORIDE 0.9% INJ 100 ML IV SCH (16:52)
[2016-10-28 05:28] VITALS: BP 143/66; PULSE 62; RESP 20; TEMP 97.9; O2SAT 93
[2016-10-28] MEDS ORDERED: ACETAMINOPHEN 325 MG TAB PO ONE (07:30)
[2016-10-28] MEDS ORDERED: diphenhydrAMINE HCL 25 MG CAP PO ONE (07:30)
--- NOTE | 2016-10-28 07:36 | HHI.PR ---
Subjective Remarks resting comfortably with no distress. no sob. no new complaints. d/w the RN. Objective Vitals Vital Signs Date Time Temp Pulse Resp B/P Pulse Ox O2 Delivery O2 Flow Rate FiO2 10/28/16 05:28 97.9 62 20 143/66 93 10/27/16 23:09 98.1 66 20 119/67 93 10/27/16 20:36 98.1 66 20 143/63 93 10/27/16 20:09 62 10/27/16 19:05 Nasal Cannula 2.00 10/27/16 17:43 20 10/27/16 16:30 96.7 55 16 151/69 90 10/27/16 14:35 58 18 129/72 93 10/27/16 14:05 52 18 140/71 94 10/27/16 13:35 Nasal Cannula 2.00 10/27/16 13:35 54 18 142/71 95 10/27/16 13:05 53 18 136/71 95 10/27/16 12:35 55 18 136/68 94 10/27/16 12:20 97.6 60 18 138/66 93 10/27/16 07:48 95.8 58 16 164/77 97 Result Diagram: 10/25/16 0400 10/26/16 0809 Imaging Last Impressions Chest X-Ray 10/27/16 0000 Signed Impressions: Service Date/Time: Thursday, October 27, 2016 13:59 - CONCLUSION: 1. No pneumothorax identified following CT guided biopsy. Kushal Lawrence MD Renal Ultrasound 10/25/16 0000 Signed Impressions: Service Date/Time: Tuesday, October 25, 2016 11:50 - CONCLUSION: Atrophic right kidney with abnormal increased echo texture suggesting chronic medical renal disease of some type. There is no hydronephrosis. Given the asymmetry, renal vascular causes should be considered. Sascha Aaron MD Abdomen/Pelvis CT 10/25/16 0000 Signed Impressions: Service Date/Time: Tuesday, October 25, 2016 14:22 - CONCLUSION: 1. Dilatation of the common bile duct. This could reflect a reservoir phenomenon following cholecystectomy and can be correlated with signs of cholestasis. 2. 1.6 cm suspected cyst in the left lobe of the liver. 3. Global atrophy of the right kidney. There is compensatory hypertrophy of the left kidney. This could be secondary to atherosclerotic change. The patient has extensive atherosclerotic change seen throughout the visualized arterial structures. 4. Sigmoid colon diverticula. Sascha Mcwilliams MD Lung Biopsy CT 10/24/16 0000 Signed Impressions: Service Date/Time: Thursday, October 27, 2016 11:42 - CONCLUSION: Uncomplicated CT guided biopsy. Preliminary interpretation is an adequate specimen for diagnosis. Casimiro Lawrence MD FACR Chest CT 10/24/16 0000 Signed Impressions: Service Date/Time: Monday, October 24, 2016 00:11 - CONCLUSION: Large left upper lobe mass almost certainly malignant. Kiley Puckett MD Objective Remarks GENERAL: This is a well-nourished, well-developed patient, in no apparent distress. CARDIOVASCULAR: Regular rate and regular rhythm without murmurs, gallops, or rubs. RESPIRATORY: Clear to auscultation. Breath sounds equal bilaterally. No wheezes , rales, or rhonchi. GASTROINTESTINAL: Abdomen soft, non-tender, nondistended. Normal, active bowel sounds MUSCULOSKELETAL: Extremities without clubbing, cyanosis, or edema. NEURO: Alert & Oriented x4 to person, place, time, situation. Moves all ext x4 Procedures lung biopsy Medications and IVs Current Medications IV Flush (NS Flush) 2 ml UNSCH PRN IVF FLUSH AFTER USING IV ACCESS; Start 10/23 at 23:00; Stop 10/24/16 at 06:17; Status DC Methylprednisolone Sodium Succinate (SoluMEDROL INJ) 125 mg ONCE ONCE IVP Last administered on 10/23/16 23:00; Start 10/23/16 at 23:00; Stop 10/23/16 at 23:01; Status DC Albuterol/ Ipratropium (Duoneb Neb) 1 ampule Q15M INH Last administered on 10/23 23:09; Start 10/23/16 at 23:00; Stop 10/23/16 at 23:16; Status DC Enalaprilat 2.5 mg 2.5 mg ONCE ONCE IV PUSH Last administered on 10/24/16 01: 54; Start 10/24/16 at 01:30; Stop 10/24/16 at 01:31; Status DC Sodium Chloride (NS 1000 ml Inj) 1,000 ml @ 100 mls/hr Q10H IV Last administered on 10/24/16 06:51; Start 10/24/16 at 06:10; Stop 10/24/16 at 16:09 ; Status DC IV Flush (NS Flush) 2 ml UNSCH PRN FLUSH FLUSH AFTER USING IV ACCESS; Start at 06:15 IV Flush (NS Flush) 2 ml BID FLUSH Last administered on 10/27/16 21:02; Start 10/24/16 at 09:00 Ondansetron HCl (Zofran Inj) 4 mg Q6H PRN IVP NAUSEA OR VOMITING; Start at 06:15 Naloxone HCl (Narcan Inj) 0.4 mg UNSCH PRN IV SEE LABEL COMMENTS; Start at 06:15 Albuterol/ Ipratropium (Duoneb Neb) 1 ampule Q4HR NEB PRN NEB SOB/WHEEZING Last administered on 10/26/16 00:13; Start 10/24/16 at 06:15 Clonidine 0.1 mg 0.1 mg Q6H PRN PO SBP> OR = 180, DBP> OR = 100 Last administered on 10/24/16 13:53; Start 10/24/16 at 06:30 Ceftriaxone Sodium/Sodium Chloride (Rocephin Inj/NS Inj) 100 ml @ 200 mls/hr Q24H IV Last administered on 10/26/16 12:46; Start 10/24/16 at 14:00; Stop at 07:26; Status DC Influenza Virus Vaccine (Flu (Quadrivalent) Vaccine Inj) 0.5 ml ONCE ONCE IM ; Start 10/25/16 at 10:00; Stop 10/25/16 at 10:01; Status DC Pneumococcal Polyvalent Vaccine (Pneumovax-23 Inj) 25 mcg ONCE ONCE IM ; Start 10/25/16 at 10:00; Stop 10/25/16 at 10:01; Status DC Losartan Potassium (Cozaar) 50 mg DAILY PO Last administered on 10/27/16 16:16 ; Start 10/25/16 at 09:00 Pantoprazole Sodium (Protonix) 20 mg DAILY PO Last administered on 10/27/16 16 :16; Start 10/25/16 at 09:00 Non-Formulary Medication 20 mg 20 mg DAILY PO ; Start 10/25/16 at 09:00; Stop at 09:44; Status DC Sodium Chloride (NS 500 ml Inj) 500 ml @ 50 mls/hr Q10H ONCE IV Last administered on 10/25/16 08:46; Start 10/25/16 at 09:00; Stop 10/25/16 at 18:59 ; Status DC Diatrizoate Meglum/ Diatrizoate Sod (Md [address] Liq) 18 ml ONCE ONCE PO Last administered on 10/25/16 11:06; Start 10/25/16 at 09:30; Stop 10/25/16 at 09:31; Status DC Amlodipine Besylate (Norvasc) 10 mg DAILY PO Last administered on 10/27/16 16: 16; Start 10/25/16 at 10:00 Iohexol 96 ml 96 ml STK-MED ONCE IV Last administered on 10/25/16 14:40; Start 10/25/16 at 14:40; Stop 10/25/16 at 14:41; Status DC Iron Sucrose/ Sodium Chloride (Venofer Inj/NS Inj) 110 ml @ 110 mls/hr DAILY IV Last administered on 10/27/16 16:52; Start 10/26/16 at 18:30; Stop at 09:59 Acetaminophen (Tylenol) 650 mg ONCE ONCE PO Last administered on 10/26/16 20: 26; Start 10/26/16 at 19:45; Stop 10/26/16 at 19:47; Status DC Diphenhydramine HCl (Benadryl) 25 mg ONCE ONCE PO Last administered on 20:26; Start 10/26/16 at 19:45; Stop 10/26/16 at 19:47; Status DC Acetaminophen (Tylenol) 650 mg ONCE ONCE PO Last administered on 10/27/16 16: 16; Start 10/27/16 at 07:30; Stop 10/27/16 at 07:52; Status DC Diphenhydramine HCl (Benadryl) 25 mg ONCE ONCE PO Last administered on 16:16; Start 10/27/16 at 07:30; Stop 10/27/16 at 07:52; Status DC Ciprofloxacin (Cipro) 250 mg Q12HR PO Last administered on 10/27/16 21:02; Start 10/27/16 at 09:00 Lidocaine/ Epinephrine (Xylocaine-Epi 1%-1:100,000 Inj) 20 ml STK-MED ONCE .ROUTE Last administered on 10/27/16 10:57; Start 10/27/16 at 10:57; Stop at 10:58; Status DC Midazolam HCl (Versed Inj) 5 mg STK-MED ONCE .ROUTE Last administered on 11:36; Start 10/27/16 at 11:36; Stop 10/27/16 at 11:37; Status DC Fentanyl Citrate (fentaNYL INJ) 250 mcg STK-MED ONCE .ROUTE Last administered on 10/27/16 11:36; Start 10/27/16 at 11:36; Stop 10/27/16 at 11:37; Status DC Oxycodone/ Acetaminophen (Percocet 5-325 Mg) 1 tab Q4H PRN PO PAIN SCALE 1 TO 10; Start 10/27/16 at 12:00 A/P Assessment and Plan A/P - lung mass ( left upper lobe) oncology consult appreciated;s/p CT-guided biopsy of the lung mass - f/u with oncology as outpatient. -anemia; started on IV Iron -UTI; switched to po antibiotic-UC with e-coli and staph. coag-positive -hypertension; clonidine as needed- resumed home meds -DVT prophylaxis with SCD's Discharge Planning dc home today after the last bag of IV iron. see med list. f/u with pcp and oncology. d/w the patient and the son- d/w the RN. Kimberlee Broussard MD Oct 28, 2016 07:36
[2016-10-28] MEDS ORDERED: CIPR250T52 PO (07:37)
--- NOTE | 2016-10-28 07:37 | HHI.DCPOC ---
Discharge Care Plan Diagnosis: (1) Lung mass Your Health Problems Are: Shortness of Breath Goals to Promote Your Health * To prevent worsening of your condition and complications * To maintain your health at the optimal level Directions to Meet Your Goals Take your medications as prescribed Follow your dietary instruction Follow activity as directed Keep your appointments as scheduled Take your immunizations and boosters as scheduled If your symptoms worsen call your PCP, if no PCP go to Urgent Care Center or Emergency Room Smoking is Dangerous to Your Health. Avoid second hand smoke Call the 24-hour hour crisis hotline for domestic abuse at Kimberlee Broussard MD Oct 28, 2016 07:37
--- NOTE | 2016-10-28 07:38 | HHI.DS ---
Discharge Summary Admission Date Oct 24, 2016 at 01:30 Discharge Date: Oct 28, 2016 Admitting Diagnosis lung mass, dyspnea, hypertension (1) Lung mass ICD Code: R91.8 Diagnosis: Principal (2) Dyspnea ICD Code: R06.00 Diagnosis: Principal Procedures lung biopsy Brief History - From Admission patient is a 76 y/o female who presented to ER with shortness of breath. she's bengali speaking and the son helped with the translation. reported the patient had sob for few weeks. this was associated with occasional dry cough. she denies any fever, chills or recent weight loss. she's a chronic smoker and used to smoke a pack a day although she's trying to cut it down.she's also complaining of some dysuria . CBC/BMP: 10/25/16 0400 10/26/16 0809 Significant Findings Laboratory Tests Test 10/26/16 08:09 Haptoglobin 212 MG/DL (30-200) Blood Urea Nitrogen 21 MG/DL (7-18) Creatinine 1.18 MG/DL (0.50-1.00) Estimat Glomerular Filtration 44 ML/MIN (>89) Rate Calcium Level 8.2 MG/DL (8.5-10.1) Iron Level 37 MCG/DL (50-170) Percent Iron Saturation 14.3 % (20-50) Transferrin 185 MG/DL (213-418) Imaging Last Impressions Chest X-Ray 10/27/16 0000 Signed Impressions: Service Date/Time: Thursday, October 27, 2016 13:59 - CONCLUSION: 1. No pneumothorax identified following CT guided biopsy. Kushal Lawrence MD Renal Ultrasound 10/25/16 0000 Signed Impressions: Service Date/Time: Tuesday, October 25, 2016 11:50 - CONCLUSION: Atrophic right kidney with abnormal increased echo texture suggesting chronic medical renal disease of some type. There is no hydronephrosis. Given the asymmetry, renal vascular causes should be considered. Sascha Aaron MD Abdomen/Pelvis CT 10/25/16 0000 Signed Impressions: Service Date/Time: Tuesday, October 25, 2016 14:22 - CONCLUSION: 1. Dilatation of the common bile duct. This could reflect a reservoir phenomenon following cholecystectomy and can be correlated with signs of cholestasis. 2. 1.6 cm suspected cyst in the left lobe of the liver. 3. Global atrophy of the right kidney. There is compensatory hypertrophy of the left kidney. This could be secondary to atherosclerotic change. The patient has extensive atherosclerotic change seen throughout the visualized arterial structures. 4. Sigmoid colon diverticula. Sascha Mcwilliams MD Lung Biopsy CT 10/24/16 0000 Signed Impressions: Service Date/Time: Thursday, October 27, 2016 11:42 - CONCLUSION: Uncomplicated CT guided biopsy. Preliminary interpretation is an adequate specimen for diagnosis. Casimiro Lawrence MD FACR Chest CT 10/24/16 0000 Signed Impressions: Service Date/Time: Monday, October 24, 2016 00:11 - CONCLUSION: Large left upper lobe mass almost certainly malignant. Kiley Puckett MD PE at Discharge GENERAL: This is a well-nourished, well-developed patient, in no apparent distress. CARDIOVASCULAR: Regular rate and regular rhythm without murmurs, gallops, or rubs. RESPIRATORY: Clear to auscultation. Breath sounds equal bilaterally. No wheezes , rales, or rhonchi. GASTROINTESTINAL: Abdomen soft, non-tender, nondistended. Normal, active bowel sounds MUSCULOSKELETAL: Extremities without clubbing, cyanosis, or edema. NEURO: Alert & Oriented x4 to person, place, time, situation. Moves all ext x4 Hospital Course - lung mass ( left upper lobe) oncology consult appreciated;s/p CT-guided biopsy of the lung mass - f/u with oncology as outpatient. -anemia; started on IV Iron -UTI; switched to po antibiotic-UC with e-coli and staph. coag-positive -hypertension; clonidine as needed- resumed home meds -DVT prophylaxis with SCD's Pt Condition on Discharge: Good Discharge Disposition: Discharge Home Discharge Time: <= 30 minutes Discharge Instructions DIET: Follow Instructions for: Heart Healthy Diet Activities you can perform: Regular-No Restrictions Follow up Referrals: Oncology PCP Follow-up New Medications: Ciprofloxacin (Cipro) 250 Mg Tab 250 MG PO Q12HR uti Days 2 Ref 0 TAB Continued Medications: Losartan (Losartan) 50 Mg Tab 50 MG PO DAILY Blood Pressure Management #30 Ref 0 TAB Omeprazole (Omeprazole) 20 Mg Tab 20 MG PO DAILY #30 Ref 0 TAB ([Nitrendipine]) 20 MG PO DAILY Kimberlee Broussard MD Oct 28, 2016 07:38
[2016-10-28 08:00] VITALS: BP 150/68; PULSE 56; PULSE 63; RESP 18; TEMP 97.7; O2SAT 93
[2016-10-28] MEDS: LOSARTAN 50 MG TAB PO SCH (09:19)
[2016-10-28] MEDS: CIPROFLOXACIN 250 MG TAB PO SCH (09:20)
[2016-10-28] MEDS: PANTOPRAZOLE SOD 20 MG DELAYED RELEASE TAB PO SCH (09:20)
[2016-10-28] MEDS: SODIUM CHLORIDE 0.9% FLUSH 5 ML FLUSH FLUSH SCH (09:21)
[2016-10-28] MEDS: IRON SUCROSE INJ 200 MG in SODIUM CHLORIDE 0.9% INJ 100 ML IV SCH (09:21)
[2016-10-28 12:00] VITALS: BP 135/60; PULSE 61; RESP 18; TEMP 96.7; O2SAT 92
--- NOTE | 2016-10-28 16:34 | PD.ONC.PN ---
Subjective Subjective Remarks doing well no new issues. awaiting path Objective Data Date Time Temp Pulse Resp B/P Pulse Ox O2 Delivery O2 Flow Rate FiO2 10/28/16 12:00 96.7 61 18 135/60 92 10/28/16 08:00 97.7 56 18 150/68 93 10/28/16 08:00 63 10/28/16 08:00 Nasal Cannula 2.00 10/28/16 05:28 97.9 62 20 143/66 93 10/27/16 23:09 98.1 66 20 119/67 93 10/27/16 20:36 98.1 66 20 143/63 93 10/27/16 20:09 62 10/27/16 19:05 Nasal Cannula 2.00 10/27/16 17:43 20 10/28/16 10/28/16 10/28/16 06:59 14:59 22:59 Intake Total 600 ml Balance 600 ml Result Diagram: 10/25/16 0400 10/26/16 0809 Culture Results Microbiology Date/Time Procedure Status Source Growth 10/27/16 11:58 Gram Stain Received Wound Chest Pending 10/27/16 11:58 Wound Culture Received Wound Chest Pending 10/27/16 11:58 Acid Fast Stain Received Wound Chest Pending 10/27/16 11:58 Mycobacterial Culture Received Wound Chest Pending 10/27/16 12:02 Gram Stain - Final Resulted Wound Chest 10/27/16 12:02 Wound Culture - Preliminary Resulted Wound Chest NO GROWTH IN 24 HOURS. 10/27/16 12:02 Acid Fast Stain - Final Resulted Wound Chest NO ACID FAST BACILLI SEEN 10/27/16 12:02 Mycobacterial Culture Resulted Wound Chest Pending 10/27/16 12:02 Fungal Smear - Final Resulted Wound Chest NO FUNGAL ELEMENTS SEEN. 10/27/16 12:02 Fungal Culture Resulted Wound Chest Pending Objective Remarks GENERAL: nad SKIN: Warm and dry. NECK: Supple, trachea midline. No JVD or lymphadenopathy. LYMPHATIC: No adenopathy. CARDIOVASCULAR: Regular rate and rhythm without murmurs. RESPIRATORY: Breath sounds equal bilaterally. No accessory muscle use. GASTROINTESTINAL: Abdomen soft, non-tender, nondistended. EXTREMITIES: No cyanosis, or edema. Assessment/Plan Problem List: (1) Dyspnea Status: Acute (2) Lung mass Status: Acute Assessment 76-year-old female who is from [facility] who is visiting her family here in the [facility]. She presents to the emergency department with progressive shortness of breath and pleuritic chest pain on imaging, it appears that she has a mass in the left upper lobe. 1. 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 She has a long history of smoking. - biopsy today - CT abdomen and pelvis with contrast does not show any metastatic disease. 2. Acute kidney failure/ base line CKD/Cr levels 3. History of tobacco abuse. Tobacco abuse counselling 4. Borderline microcytic anemia -iron deficient. will start IV iron - Stool heme-occult pending OK to d/c home. biopsy results pending. O/P f/u in Oncology clinic. Problem Qualifiers (1) Dyspnea: Qualified Code: R06.00 - Dyspnea, unspecified type Hadley John MD Oct 28, 2016 16:34
== END 2016-10-28 14:39 | disposition home or self-care (01) ==
LOC: NEPC 19:19 → NEDA 10-24 01:30 → NEDH 10-24 06:43 → NEPGCP 10-24 17:29
PROVIDERS: ADMIT Internal Medicine; ATTEND Internal Medicine
DX: R91.8 Other nonspecific abnormal finding of lung field (principal); R06.00 Dyspnea, unspecified; N17.9 Acute kidney failure, unspecified; D50.9 Iron deficiency anemia, unspecified; I10 Essential (primary) hypertension; N39.0 Urinary tract infection, site not specified; B96.20 Unspecified Escherichia coli [E. coli] as the cause of diseases classified elsewhere; K21.9 Gastro-esophageal reflux disease without esophagitis; F17.200 Nicotine dependence, unspecified, uncomplicated; Z87.440 Personal history of urinary (tract) infections
CPT/HCPCS: 32405; 71010; 71250; 74177; 76775; 77012; 80048; 80053; 81001; 82378; 82550; 82607; 82747; 83010; 83540; 83550; 83615; 83735; 83880; 84466; 84484; 85025; 85027; 85044; 85379; 85610; 85730; 86403; 87015; 87070; 87077; 87086; 87102; 87116; 87186; 87205; 87206; 87804; 88305; 88333; 88341; 88342; 93005; 94640; 94664; 96374; 99285; G0378; J0696; J1756; J2250; J2930; J3010; J7030; J7040; Q9963; Q9967